=== PATIENT | male | born 1950 ===

== ENCOUNTER 2023-10-08 07:45 | Inpatient (IN) | payer OTHER ==
[2023-10-08] MEDS ORDERED: atenolo (09:25)
[2023-10-08] MEDS ORDERED: [UNRECOGNIZED DRUG - OTHER] (09:25)
[2023-10-08] MEDS ORDERED: NORVAC (09:25)
[2023-10-08 10:02] LABS: HEMATOCRIT 44.1 % (39.0-48.0); HEMOGLOBIN 15.2 g/dL (13-16.00); MEAN CELL VOLUME 86.6 fL (80.0-100.00); MEAN CORPUSCULAR HEMOGLOBIN 29.8 pg (27.00-32.0); MEAN CORPUSCULAR HGB CONC 34.5 g/dl (32.0-36.0); PLATELET COUNT 228 K/uL (150-450); RED CELL DISTRIBUTION WIDTH 13.7 % (11.5-14.5)
[2023-10-08 10:19] LABS: PH,URINE 6.5 (5.0-8.0); URINE APPEARANCE Clear; URINE BILIRRUBIN Negative (NEGATIVE); URINE BLOOD Trace; URINE COLOR Yellow; URINE GLUCOSE Negative (NEGATIVE); URINE LEUKOCYTE Negative; URINE NITRATE Negative; URINE PROTEIN Negative (NEGATIVE); URINE UROBILINOGEN 0.2 E.U./dl
[2023-10-08 10:20] LABS: URINE BACTERIA 280.8 uL (0.0-1933); URINE EPITHELIAL CELLS 2.1 uL (0.0-38.8); URINE RBC 12.2 uL (0.0-20.8); URINE WBC 4.1 uL (0.0-23.2)
[2023-10-08 10:40] LABS: BILIRUBIN TOTAL 0.89 mg/dL (0.3-1.2); CALCIUM 9.3 mg/dL (8.5-10.1); CREATININE SERUM 1.02 mg/dL (0.70-1.30); GFR 71.59; GLOBULINA 3.9 G/DL (2.4-3.5); POTASSIUM 4.69 mEq/L (3.5-5.1); TOTAL PROTEIN 7.9 gm/dL (6.4-8.2)
[2023-10-08 10:49] LABS: INR 1.04; PARTIAL THROMBOPLASTIN TIME 26.5 SECONDS (22.0-34.0); PROTHROMBIN TIME 10.9 SECONDS (9.0-11.5)
[2023-10-13] MEDS ORDERED: KETOROLAC TROMETHAMINE 60 MG VIAL IM ONE ×3 (05:10→08:15)
[2023-10-13] MEDS ORDERED: METHYLPREDNISOLONE ACETATE 40 MG/ML VIAL ONE ×2 (05:12→06:25)
[2023-10-13] MEDS ORDERED: POVIDONE-IODINE 3 EA MED..SWAB TOP ONE (05:12)
[2023-10-13] MEDS ORDERED: TRANEXAMIC ACID 100MG/1ML (1000MG) AMPUL IV ONE ×3 (06:25→08:15)
[2023-10-13] MEDS ORDERED: CEFAZOLIN SODIUM 1,000 MG VIAL ONE ×2 (06:28→11:32)
[2023-10-13] MEDS ORDERED: BUPIVACAINE HCL/PF 0.5% 1ML ONE (06:28)
[2023-10-13] MEDS ORDERED: LIDOCAINE HCL 1%/Epi 20ML VIAL IJ ONE (06:28)
[2023-10-13] MEDS ORDERED: VANCOMYCIN HCL 1,000 MG VIAL ONE (07:45)
[2023-10-13] MEDS ORDERED: BUPIVACAINE HCL/PF 0.25% 50 ML VIAL IJ ONE (08:15)
[2023-10-13] MEDS ORDERED: VANCOMYCIN HCL 1,000 MG VIAL IR ONE (08:15)
[2023-10-13] MEDS ORDERED: METHYLPREDNISOLONE ACETATE 40 MG/ML VIAL IJ ONE (08:15)
[2023-10-13] MEDS ORDERED: ISOPROPYL ALCOHOL 30 ML OUNCE TOP ONE (08:15)
[2023-10-13] MEDS ORDERED: LIDOCAINE HCL/EPINEPHRINE 10MG/ML 1% 50ML IJ ONE (08:15)
[2023-10-13] MEDS ORDERED: CEFAZOLIN SODIUM 1,000 MG VIAL IV ONE (08:15)
[2023-10-13] MEDS ORDERED: MORPHINE SULFATE 4 MG/ML CARTRIDGE IV PRN (09:45)
[2023-10-13] MEDS ORDERED: SODIUM CHLORIDE 0.45 % 1,000 ML IV SCH (09:45)
[2023-10-13] MEDS ORDERED: MORPHINE SULFATE 2 MG/ML CARTRIDGE IV ONE (09:45)
[2023-10-13] MEDS ORDERED: ONDANSETRON HCL 2 MG/ML VIAL IV PRN (09:45)
[2023-10-13 10:44] LABS: HEMATOCRIT 39.5 % (39.0-48.0); HEMOGLOBIN 13.7 g/dL (13-16.00); RED BLOOD COUNT 4.51 M/uL (4.00-6.00)
[2023-10-13] MEDS ORDERED: CEFAZOLIN SODIUM 1,000 MG VIAL IV SCH (12:00)
[2023-10-13] MEDS ORDERED: GENTAMICIN SULFATE 40 MG/ML VIAL IV SCH (12:44)
[2023-10-14 05:23] LABS: HEMATOCRIT 38.5 % (39.0-48.0); HEMOGLOBIN 13.3 g/dL (13-16.00); MEAN CELL VOLUME 87.3 fL (80.0-100.00); MEAN CORPUSCULAR HEMOGLOBIN 30.2 pg (27.00-32.0); MEAN CORPUSCULAR HGB CONC 34.6 g/dl (32.0-36.0); PLATELET COUNT 217 K/uL (150-450); RED BLOOD COUNT 4.41 M/uL (4.00-6.00); RED CELL DISTRIBUTION WIDTH 13.1 % (11.5-14.5)
[2023-10-14] MEDS ORDERED: OxyCODONE HCL/APAP UD (PERCOCET) PO PRN (08:00)
[2023-10-14] MEDS ORDERED: METOPROLOL SUCCINATE 100 MG TAB.SR.24H PO SCH (09:00)
[2023-10-14] MEDS ORDERED: OxyCODONE HCL ER 10MG TAB (OxyCONTIN) PO SCH (09:00)
[2023-10-14] MEDS ORDERED: AMLODIPINE BESYLATE 5 MG TABLET PO SCH (09:00)
[2023-10-14] MEDS ORDERED: IRON FUM,PS/FOLIC/BCOMP,C NO.9 1 CAP CAPSULE PO SCH (09:00)
[2023-10-14] MEDS ORDERED: RIVAROXABAN 10 MG TAB PO SCH (09:00)
[2023-10-14] MEDS ORDERED: BACITRACIN 28.35 GM OINT.TUBE TOP SCH (09:00)
[2023-10-14] MEDS ORDERED: SENNA/DOCUSATE SODIUM 1 TAB TABLET PO SCH (09:00)
[2023-10-15 05:33] LABS: HEMATOCRIT 34.2 % (39.0-48.0); HEMOGLOBIN 11.8 g/dL (13-16.00); MEAN CELL VOLUME 86.8 fL (80.0-100.00); MEAN CORPUSCULAR HGB CONC 34.6 g/dl (32.0-36.0); PLATELET COUNT 178 K/uL (150-450); RED BLOOD COUNT 3.94 M/uL (4.00-6.00); RED CELL DISTRIBUTION WIDTH 13.4 % (11.5-14.5)
[2023-10-16 06:18] LABS: HEMATOCRIT 35.8 % (39.0-48.0); HEMOGLOBIN 12.4 g/dL (13-16.00); MEAN CELL VOLUME 86.4 fL (80.0-100.00); MEAN CORPUSCULAR HEMOGLOBIN 29.9 pg (27.00-32.0); MEAN CORPUSCULAR HGB CONC 34.6 g/dl (32.0-36.0); PLATELET COUNT 201 K/uL (150-450); RED BLOOD COUNT 4.14 M/uL (4.00-6.00); RED CELL DISTRIBUTION WIDTH 13.5 % (11.5-14.5)
[2023-10-16] MEDS ORDERED: INTEGRA PLUS C1 EACH PO (08:37)
[2023-10-16] MEDS ORDERED: OXYC1TAB9 PO (08:37)
[2023-10-16] MEDS ORDERED: XARELTO10 MG PO (08:37)
[2023-10-16] MEDS ORDERED: BACTRIM DS TAB1 EACH PO (08:37)
== END 2023-10-16 12:27 | DRG 470 ==
LOC: O/R 10-13 05:12 → SURG 10-13 05:12 → SURH 10-13 07:00 → SURG 10-13 10:38
PROVIDERS: Internal Medicine; ADMIT Orthopaedic Surgery Sports Medicine; ATTEND Orthopaedic Surgery Sports Medicine
PROC: 0SRC0J9 Replacement of Right Knee Joint with Synthetic Substitute, Cemented, Open Approach (ICD-10-PCS; principal; 2023-10-13 07:00)
DX: M17.11 Unilateral primary osteoarthritis, right knee (principal); I10 Essential (primary) hypertension; E78.5 Hyperlipidemia, unspecified